=== PATIENT | male | born 1950 | race Caucasian/White ===

== ENCOUNTER 2022-11-06 10:25 | Emergency (ER) | payer OTHER ==
[~2022-11-06] VITALS: Ht 165.1 cm; Wt 79.8 kg
--- NOTE | 2022-11-06 10:30 | NUR ---
Placed in room 04 . Placed on pharmacy associate, blood pressure machine and pulse oximeter. To gown for exam. Side rails up. Report given to CHICO OSMAN.
--- NOTE | 2022-11-06 10:33 | NUR ---
ER at bedside examining patient.
[2022-11-06 10:46] VITALS: BP_SYST 136; PULSE 72; RESP 16; TEMP 98.2; O2SAT 98
--- NOTE | 2022-11-06 11:26 | NUR ---
SPOKE TO MILE GONZALES, STATED SPOKE TO TRAUMA DOC AND STATED TO SEND PT SOMEWHERE WITH HAND SURG. MD AND KNOCKOUT WORKER AWARE.
[2022-11-06] MEDS ORDERED: MORPHINE 4 MG INJ. 4 MG/ML VIAL IVP ONE (11:30)
[2022-11-06] MEDS ORDERED: ONDANSETRON HCL 4 MG/2 ML VIAL IVP ONE (11:30)
[2022-11-06] MEDS ORDERED: ceFAZolin SODIUM 2 GM VIAL IV ONE (11:30)
[2022-11-06] MEDS ORDERED: DIPH-TET Vacc 0.5 ML VIAL I.M. ONE (11:34)
[2022-11-06 11:35] LABS: BASOPHILS % (AUTO) 0.6 % (0.0-2.0); EOSINOPHILS # (AUTO) 0.2 K/uL (0.0-0.4); EOSINOPHILS % (AUTO) 3.4 % (0.0-4.0); HEMATOCRIT 41.5 % (36-54); HEMOGLOBIN 14.4 g/dL (14.0-18.0); LYMPHOCYTES # (AUTO) 1.5 K/uL (1.0-5.5); LYMPHOCYTES % (AUTO) 23.1 % (20.5-51.5); MEAN CORPUSCULAR HEMOGLOBIN 34 pg (27-31); MEAN CORPUSCULAR HGB CONC 35 % (32-36); MEAN CORPUSCULAR VOLUME 98 fL (79.0-98.0); MONOCYTES # (AUTO) 0.6 K/uL (0.0-1.0); NEUTROPHILS # (AUTO) 4.2 K/uL (1.8-7.7); NEUTROPHILS % (AUTO) 63.9 % (40.0-70.0); PLATELET COUNT (AUTO) 209 K/uL (130-430); RED BLOOD CELL COUNT(AUTO) 4.22 MIL/uL (4.2-6.2); RED CELL DISTRIBUTION WIDTH 13.1 % (9.0-15.0); WHITE BLOOD COUNT (AUTO) 6.5 K/uL (4.8-10.8)
--- NOTE | 2022-11-06 11:44 | NUR ---
TRANSFER INFO CAROLYN LYLE ACCEPTING: DR. ANDINO REPORT: [phone] WILL SET UP TRANSPORT TO ACCEPTED FACILITY.
[2022-11-06 11:47] LABS: CALCIUM 8.6 mg/dL (8.4-11.0); CREATININE 0.82 mg/dL (0.55-1.30)
[2022-11-06 11:51] LABS: PROTHROMBIN TIME 10.3 SECS (9.5-12.5)
[2022-11-06 11:54] LABS: ALBUMIN 4.1 g/dL (3.4-4.8); TOTAL BILIRUBIN 0.7 mg/dL (0.0-1.0)
--- NOTE | 2022-11-06 12:00 | NUR ---
ASSUMED CARE FROM DAPHNE GOLDEN. PT BIB EMPLOYER S/P LELT 5TH FINGER TIP AVULSION ON INDUSTRIAL EQUIPMENT. BLEEDING CONTROLLED. PT SEEN BY ERMD, ORDERS NOTED. COMFORT MEASURES AND SUPPORTIVE CARE INITIATED. TEACHING PROVIDED. TO CONTINUE PLAN OF CARE, PT AGREES WITH PLAN OF CARE.
[2022-11-06] MEDS ORDERED: DIPHTH,PERTUSS(ACELL),TET VAC 0.5 ML VIAL (Tdap) I.M. ONE (12:15)
[2022-11-06] MEDS ORDERED: CEFAZOLIN SOD 2 GM in D5W 50 ML IV ONE (12:15)
--- NOTE | 2022-11-06 12:33 | NUR ---
MEDICATED PER ORDER. PT UPDATED.
[2022-11-06] MEDS ORDERED: ceFAZolin SODIUM 1 GM VIAL ONE (13:08)
--- NOTE | 2022-11-06 13:28 | NUR ---
REPORT CALLED TO CAROLYN SANTORO [phone]. DR ANDINO ACCEPTING . PT AWARE AND AGREES WITH PLAN OF CARE.
--- NOTE | 2022-11-06 13:46 | NUR ---
REPORT TO TRANSPORT TEAM. DR KHAN SPOKE WITH PT. PT DEPARTED TO [facility] VIA TRANSPORT.
[2022-11-06 13:47] VITALS: BP_SYST 150; PULSE 60; RESP 14; O2SAT 99
== END 2022-11-06 13:47 | disposition short-term general hospital (02) ==
LOC: SED 10:25
DX: S61.305A Unspecified open wound of left ring finger with damage to nail, initial encounter (principal); Z79.899 Other long term (current) drug therapy; W31.2XXA Contact with powered woodworking and forming machines, initial encounter; Y93.89 Activity, other specified; Y92.89 Other specified places as the place of occurrence of the external cause; Y99.8 Other external cause status
CPT/HCPCS: 99285; 96365; 96375; 80053; 85025; 85610; 85730; 36415; 73140; 90714; 90471; J0690; J2405; J2270; J7060; 99284